=== PATIENT | female | born 1945 | race Caucasian/White ===

== ENCOUNTER → 2017-05-08 | Outpatient (CLI) | payer MEDICARE, BC | END | disposition home or self-care (01) | LOC: HKI 10:52 | DX: M54.5 Low back pain (principal); I10 Essential (primary) hypertension; R79.0 Abnormal level of blood mineral; Z96.643 Presence of artificial hip joint, bilateral; Z87.828 Personal history of other (healed) physical injury and trauma; Z85.038 Personal history of other malignant neoplasm of large intestine | CPT/HCPCS: 73522; 73562-RT ==